=== PATIENT | male | born 1995 | race Caucasian/White ===

== ENCOUNTER 2016-10-11 16:02 | Emergency (ER) | payer MEDICAID, OTHER ==
[~2016-10-11] VITALS: Wt 80.0 kg
[2016-10-11] MEDS ORDERED: IMIQ1CRE14 TOP (19:41)
--- NOTE | 2016-10-11 19:44 | ERD ---
ER Documentation Chief Complaint Date/Time DATE: 10/11/16 TIME: 19:42 Chief Complaint TESTICLE AREA SMALL AREA OF RAISED NON RED SWELLING NO DRAINGE. HPI This is a 21-year-old male complains of a growth to his mons pubis area just above the penis for the past 2 weeks. The patient states he sexually active with the same girl who is asymptomatic. No penile discharge or lesions no vesicles no ulcers or chancre ROS All systems reviewed and are negative except as per history of present illness. Medications Home Meds Active Scripts Imiquimod (Imiquimod) 5% Cream.pack, 1 PACKET TOP every other day, #20 EA or use until gone Prov:MICHEAL FUENTES DO 10/11/16 Allergies Allergies: Coded Allergies: No Known Allergy (Unverified , 07/25/13) PMhx/Soc Medical and Surgical Hx: pt denies Medical Hx, pt denies Surgical Hx Hx Alcohol Use: No Hx Substance Use: No Hx Tobacco Use: No Smoking Status: Never smoker FmHx Family History: No coronary disease Physical Exam Vitals Vital Signs Date Time Temp Pulse Resp B/P Pulse Ox O2 Delivery O2 Flow Rate FiO2 10/11/16 16:09 98.6 81 20 137/81 99 Physical Exam Const: Well-developed, well-nourished Head: Atraumatic, normocephalic Eyes: Normal Conjunctiva, PERRLA, EOMI, normal sclera, no nystagmus ENT: Normal External Ears, Nose and Mouth, moist mucus membranes. Neck: Full range of motion. No meningismus, no lymphadenopathy. Resp: Clear to auscultation bilaterally, no wheezing, rhonchi, rales Cardio: Regular rate and rhythm, no murmurs, S1 S2 present Abd: Soft, non tender x 4, non distended. Normal bowel sounds, no guarding or rebound, no pulsitile abdominal masses or bruits, there is a solitary condyloma and/or skin tag 2 cm above the penis on the mons pubis area Skin: No petechiae or rashes, no ecchymosis , no maculopapular rash Back: No midline or flank tenderness Ext: No cyanosis, or edema, FROM x 4, normal inspection, neurovascularly intact x 4 Neur: Awake and alert, STR 5/5 x 4, sensation intact x 4, no focal findings, cerebellum intact Psych: Normal Mood and Affect Departure Diagnosis: Primary Impression: Condyloma Condition: Stable Patient Instructions: Genital Warts (Condyloma) MICHEAL FUENTES DO Oct 11, 2016 19:43
== END 2016-10-11 19:53 | disposition home or self-care (01) ==
LOC: FTE 16:02
DX: A63.0 Anogenital (venereal) warts (principal)
CPT/HCPCS: 99283